=== PATIENT | male | born 1985 | race African-American/Black ===

== ENCOUNTER 2017-11-10 12:48 | Observation (INO) | payer BC, OTHER ==
[~2017-11-10] VITALS: Ht 175.3 cm; Wt 72.6 kg
[2017-11-10 13:45] LABS: Eosinophils # (auto) 0.2 uL; Eosinophils % (auto) 3.7 % (0.0-7.0); Hemoglobin 14.8 g/dL (13.5-17.5); Lymphocytes # (auto) 1.6 uL; White Blood Cell 4.1 10^3/uL (4.4-10.8)
[2017-11-10 13:46] LABS: Basophils # (auto) 0.1 uL; Basophils % (auto) 1.2 % (0.0-2.0); Hematocrit 46.2 % (41.0-53.0); Lymphocytes % (auto) 38.6 % (10.0-50.0); Mean Corpuscular Hgb Conc. 32.1 g/dL (32.0-36.0); Mean Corpuscular Volume 74.7 fL (80.0-100.0); Monocytes # (auto) 0.5 uL; Neutrophils # (auto) 1.8 uL; Neutrophils % (auto) 43.5 % (37.0-80.0); Nucleated Red Blood Cells % 0.2 %; Platelet Count (auto) 286 10^3/uL (140-450); Red Blood Cells 6.18 10^6/uL (4.5-5.90); Red Cell Distribution Width 14.3 % (11.8-14.3)
[2017-11-10 14:11] LABS: Urine Bacteria NONE SEEN /hpf (None Seen); Urine Blood Negative /uL (Negative); Urine Specific Gravity 1.017 (1.001-1.035); Urine WBC <1 /hpf (0 - 3)
[2017-11-10 14:15] LABS: Albumin 3.7 g/dL (3.4-5.0); BUN/Creatinine Ratio 6.8; Bilirubin, Total 0.2 mg/dL (0.2-1.0); Calcium 8.3 mg/dL (8.5-10.1); Potassium 4.2 mmol/L (3.5-5.1); Total Protein 7.2 g/dL (6.4-8.2)
[2017-11-10] MEDS ORDERED: SODIUM CHLORIDE 0.9% 1,000 ML IVB ONE (20:21)
[2017-11-10 21:03] LABS: Magnesium 1.8 mg/dL (1.6-2.6)
[2017-11-10 21:06] LABS: INR 1.08 (0.9-1.15); Prothrombin Time 11.8 sec (9.37-12.3)
[2017-11-10 22:50] VITALS: BP 122/53
== END 2017-11-10 23:35 | disposition home or self-care (01) | DRG 392 ==
LOC: ER 12:48 → OVERFLOW 20:22 → ER 23:35
PROVIDERS: ADMIT Family Medicine; ATTEND Family Medicine
DX: R10.9 Unspecified abdominal pain (principal); Z82.49 Family history of ischemic heart disease and other diseases of the circulatory system
CPT/HCPCS: 36415; 71045; 74176; 80053; 81001; 82150; 83690; 83735; 85025; 85610; 85730; 96360; 96361; 99285; G0378

== ENCOUNTER 2019-03-20 12:11 | Emergency (ER) | payer BC ==
[~2019-03-20] VITALS: Ht 175.3 cm; Wt 73.5 kg
[2019-03-20] MEDS ORDERED: ASPirin 81 mg TAB PO ONE (12:30)
[2019-03-20 12:59] LABS: Eosinophils # (auto) 0.1 uL; Lymphocytes # (auto) 1.5 uL; Neutrophils # (auto) 2.7 uL; Nucleated Red Blood Cells % 0.3 %; Red Cell Distribution Width 14.1 % (11.8-14.3)
[2019-03-20 13:01] LABS: Basophils # (auto) 0 uL; Basophils % (auto) 0.6 % (0.0-2.0); Eosinophils % (auto) 1.7 % (0.0-7.0); Hematocrit 53.8 % (41.0-53.0); Hemoglobin 16.9 g/dL (13.5-17.5); Lymphocytes % (auto) 30.6 % (10.0-50.0); Mean Corpuscular Hemoglobin 24.6 pg (28.0-32.0); Mean Corpuscular Hgb Conc. 31.4 g/dL (32.0-36.0); Mean Corpuscular Volume 78.4 fL (80.0-100.0); Monocytes # (auto) 0.7 uL; Monocytes % (auto) 13.5 % (0.0-12.0); Neutrophils % (auto) 53.6 % (37.0-80.0); Platelet Count (auto) 229 10^3/uL (140-450); Red Blood Cells 6.86 10^6/uL (4.5-5.90)
[2019-03-20 13:12] LABS: Alanine Aminotransferase 18 U/L (16-61); Albumin 3.7 g/dL (3.4-5.0); Anion Gap 9 (5-15); Aspartate Aminotransferase 14 U/L (15-37); BUN/Creatinine Ratio 4.7; Blood Urea Nitrogen 5 mg/dL (7-18); Calcium 8.6 mg/dL (8.5-10.1); Carbon Dioxide 25 mmol/L (21-32); Chloride 106 mmol/L (98-107); GFR African American 102 mL/min; GFR Non-African American 85 mL/min; Glucose 89 mg/dL (74-106); Potassium 3.9 mmol/L (3.5-5.1); Sodium 140 mmol/L (136-145)
[2019-03-20 13:17] LABS: Alkaline Phosphatase 51 U/L (45-117); Bilirubin, Total 0.3 mg/dL (0.2-1.0); Total Protein 7.1 g/dL (6.4-8.2)
[2019-03-20 14:44] VITALS: BP 120/76
== END 2019-03-20 14:46 | disposition home or self-care (01) ==
LOC: ER 12:20
DX: R07.89 Other chest pain (principal)
CPT/HCPCS: 36415; 71046; 80053; 84484; 85025